=== PATIENT | male | born 1990 | race Asian ===

== ENCOUNTER 2017-12-02 18:06 | Emergency (ER) | payer OTHER ==
[~2017-12-02] VITALS: Ht 177.8 cm; Wt 75.0 kg
[2017-12-02 18:20] VITALS: TEMP 36.8; Ht 177.8 cm; Wt 75.0 kg
[2017-12-02] MEDS ORDERED: TRAMADOL HCL 50 MG TAB PO STA (20:09)
[2017-12-02] MEDS ORDERED: OPTIRAY 320 IV PRN (20:30)
[2017-12-02 20:47] LABS: ISTAT CREATININE 0.9 mg/dl (0.6-1.3); ISTAT IONIZED CALCIUM 1.16 mmol/l (1.12-1.32); ISTAT POTASSIUM 3.9 mEq/L (3.3-5.0)
[2017-12-02] MEDS ORDERED: PATIENT'S ALLERGY INFO NEEDS ENTERED STA (21:22)
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
[2017-12-02 23:45] VITALS: BP 132/83; PULSE 69; O2SAT 99
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
== END 2017-12-03 00:55 | disposition home or self-care (01) ==
LOC: EDBD 18:07 → C.EDB 18:08 → C.EDD 12-03 00:55
DX: S16.1XXA Strain of muscle, fascia and tendon at neck level, initial encounter (principal); S80.211A Abrasion, right knee, initial encounter; S80.212A Abrasion, left knee, initial encounter; V87.7XXA Person injured in collision between other specified motor vehicles (traffic), initial encounter